=== PATIENT | female | born 1975 | race Caucasian/White ===

== ENCOUNTER 2017-09-30 00:28 | Observation (INO) | payer MEDICAID ==
[~2017-09-30] VITALS: Ht 162.6 cm; Wt 93.4 kg
[2017-09-30] MEDS ORDERED: SODIUM CHLORIDE 0.9% 1,000 ML IV NR (01:00)
[2017-09-30] MEDS ORDERED: ACETAMINOPHEN 500MG TABLET PO NR (01:00)
[2017-09-30 01:22] LABS: CLARITY URINE CLEAR (CLEAR); COLOR URINE YELLOW (YELLOW); KETONES URINE NEGATIVE (NEGATIVE); LEUKOCYTE ESTERASE URINE NEGATIVE (NEGATIVE); NITRITE URINE NEGATIVE (NEGATIVE); OCCULT BLOOD URINE NEGATIVE (NEGATIVE); PH URINE 6.5 (4.5-8.0); PROTEIN URINE NEGATIVE (NEGATIVE); SPECIFIC GRAVITY URINE 1.018 (1.005-1.030)
[2017-09-30 02:00] LABS: *AMPHETAMINES SCREEN URINE NEGATIVE (NEGATIVE); *BARBITURATES SCREEN URINE NEGATIVE (NEGATIVE); *COCAINE SCREEN URINE NEGATIVE (NEGATIVE); CANNABINOID URINE SCREEN NEGATIVE (NEGATIVE); METHADONE URINE SCREEN NEGATIVE (NEGATIVE); OPIATES URINE SCREEN NEGATIVE (NEGATIVE); PHENCYCLIDINE URINE SCREEN NEGATIVE (NEGATIVE)
[2017-09-30 02:10] LABS: *BENZODIAZEPINES SCREEN URINE NEGATIVE (NEGATIVE)
[2017-09-30] MEDS ORDERED: PNV1TABL76 MT (02:14)
[2017-09-30] MEDS ORDERED: OMEP10CA4 PO (02:14)
[2017-09-30] MEDS ORDERED: FOLI-43 PO (02:14)
== END 2017-09-30 02:35 | disposition home or self-care (01) ==
LOC: L&D 00:28
PROVIDERS: ADMIT Specialist; ATTEND Specialist
DX: O26.893 Other specified pregnancy related conditions, third trimester (principal); R16.0 Hepatomegaly, not elsewhere classified; K80.20 Calculus of gallbladder without cholecystitis without obstruction; Z3A.36 36 weeks gestation of pregnancy
CPT/HCPCS: 76700; 80305; 81003; 99281; G0378; 96360; 96361

== ENCOUNTER 2017-11-07 23:42 | Emergency (ER) | payer MEDICAID, OTHER ==
[~2017-11-07] VITALS: Ht 162.6 cm; Wt 110.0 kg
[~2017-11-07 23:42] MED LIST: FOLI-43 PO; OMEP10CA4 PO; PNV1TABL76 MT
[2017-11-07 23:46] VITALS: BP 142/81
== END 2017-11-08 03:00 | disposition left against medical advice (07) ==
LOC: ER 23:42
DX: Z53.21 Procedure and treatment not carried out due to patient leaving prior to being seen by health care provider (principal)